=== PATIENT | female | born 1965 | race Caucasian/White ===

== ENCOUNTER 2018-04-07 10:59 | Outpatient (CLI) | payer MEDICARE ==
--- NOTE | 2018-04-07 13:08 | RAD ---
RIGHT FOOT THREE VIEWS: HISTORY: Pain. COMPARISON: None. FINDINGS: There are severe midfoot degenerative changes. Mild widening of the Lisfranc interval. Old medial h allux sesamoid fracture versus bipartite sesamoid. There are erosive changes of the intermetatarsal joints of the third and fourth metatarsal bases. Large plantar calcaneal spur. IMPRESSION: Severe midfoot degenerative changes, likely an old Lisfranc interval injury. POS: [facility]PC
--- NOTE | 2018-04-07 13:24 | RAD ---
LEFT FOOT THREE VIEWS: HISTORY: Pain. COMPARISON: None. FINDINGS: Severe degenerative changes of the navicular-medial cuneiform joint. Mild widening of the of Lisfran c interval. 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 Mild soft tissue swelling. Severe narrowing at the interphalangeal joint of the great toe. Bipartite medial hallux sesamoid versus old fracture. Moderate-sized plantar calcaneal spur. There is severe narrowing of the talonavicular joint with subcortical cyst formation and complete loss of c artilage. IMPRESSION: Severe midfoot degenerative change. POS: TPC
== END 2018-04-07 11:00 | disposition home or self-care (01) ==
LOC: RAD-FRANK 10:59
PROVIDERS: ATTEND Nurse Practitioner Family
DX: M79.671 Pain in right foot (principal); M79.672 Pain in left foot; M19.072 Primary osteoarthritis, left ankle and foot; M19.071 Primary osteoarthritis, right ankle and foot

== ENCOUNTER 2020-08-06 18:02 | Inpatient (IN) | payer MEDICARE ==
[2020-08-06] MEDS ORDERED: Fentanyl 100 MCG/2 ML VIAL ONE (18:29)
[2020-08-06] MEDS ORDERED: PROPOFOL 20 ML ONE (18:49)
[2020-08-06] MEDS ORDERED: Morphine 4 MG/ML VIAL ONE (19:54)
[2020-08-06] MEDS ORDERED: traMADol HCl 50 MG TAB PO PRN (20:50)
[2020-08-06] MEDS ORDERED: Famotidine/PF 20 mg/2ml Vial SLOW IVP SCH (21:00)
[2020-08-06] MEDS: Morphine 2 MG/ML VIAL SLOW IVP PRN ×2 (22:01→23:46)
[2020-08-06] MEDS: Nicotine 14 MG PATCH TD SCH (22:02)
[2020-08-06 22:13] VITALS: BMI 22.8
[2020-08-06 22:37] LABS: #Basophils 0.1 thou/uL (0.0-0.2); #Lymphocytes 1.5 thou/uL (1.20-3.40); #Monocytes 0.9 thou/uL (0.11-0.59); #Neutrophils 8.8 thou/uL (1.40-6.50); %Basophils 0.6 % (0.0-1.0); %Eosinophils 0.3 % (0.0-10.0); %Lymphocytes 13.2 % (21.0-51.0); %Monocytes 7.6 % (0.0-10.0); %Neutrophils 78.3 % (42.0-75.0); Hemoglobin 11.7 g/dL (12.0-16.0); Mean Corpuscular HGB CONC 35.1 g/dL (32.0-36.0); Mean Corpuscular Volume 96.8 fL (78.0-98.0); Mean Platelet Volume 6.4 fL (7.4-10.4); Platelet Count 284 thou/uL (130-400); RBC Distribution Width 12.1 % (11.5-14.5); Red Blood Cell (RBC) Count 3.43 mill/uL (4.20-5.40); White Blood Cell (WBC) Count 11.3 thou/uL (4.8-10.8)
[2020-08-06 23:00] LABS: Anion Gap 15 mmol/L (10-20); BUN (Urea Nitrogen) 4 mg/dL (9.8-20.1); Calc. Creatinine Clearance 91 mL/min (70-130); Calcium 8.5 mg/dL (7.8-10.44); Carbon Dioxide 23 mmol/L (22-29); Chloride 93 mmol/L (98-107); Glucose 78 mg/dL (70-105); Magnesium 1.6 mg/dL (1.6-2.6); Phosphorus 3.2 mg/dL (2.3-4.7); Potassium 3.3 mmol/L (3.5-5.1); Sodium 128 mmol/L (136-145)
[2020-08-06] MEDS: Cyclobenzaprine 10 MG TAB PO PRN (23:21)
[2020-08-06] MEDS: Ibuprofen 200 MG TAB PO SCH (23:45)
[2020-08-06] MEDS: Acetaminophen 325 MG TAB PO SCH (23:45)
[2020-08-07] MEDS: Morphine 2 MG/ML VIAL SLOW IVP PRN ×6 (01:46→23:52)
[2020-08-07 04:44] LABS: #Basophils 0.1 thou/uL (0.0-0.2); #Eosinphils 0.1 thou/uL (0.0-0.7); #Lymphocytes 1.7 thou/uL (1.20-3.40); #Neutrophils 5.6 thou/uL (1.40-6.50); %Basophils 0.6 % (0.0-1.0); %Eosinophils 0.6 % (0.0-10.0); %Lymphocytes 20.1 % (21.0-51.0); %Monocytes 11.9 % (0.0-10.0); %Neutrophils 66.7 % (42.0-75.0); Hemoglobin 11.6 g/dL (12.0-16.0); Mean Corpuscular HGB CONC 34.9 g/dL (32.0-36.0); Mean Corpuscular Volume 97.6 fL (78.0-98.0); Mean Platelet Volume 6.8 fL (7.4-10.4); Platelet Count 257 thou/uL (130-400); Red Blood Cell (RBC) Count 3.41 mill/uL (4.20-5.40); White Blood Cell (WBC) Count 8.4 thou/uL (4.8-10.8)
[2020-08-07 04:55] LABS: INR-International Normal Ratio 1.1; Prothrombin Time 14.1 sec (12.0-14.7)
[2020-08-07 05:04] LABS: Anion Gap 13 mmol/L (10-20); BUN (Urea Nitrogen) 5 mg/dL (9.8-20.1); Calc. Creatinine Clearance 94 mL/min (70-130); Calcium 8.7 mg/dL (7.8-10.44); Carbon Dioxide 25 mmol/L (22-29); Chloride 94 mmol/L (98-107); Glucose 79 mg/dL (70-105); Potassium 3.2 mmol/L (3.5-5.1); Sodium 129 mmol/L (136-145)
[2020-08-07] MEDS: Ibuprofen 200 MG TAB PO SCH ×3 (05:58→22:11)
[2020-08-07] MEDS: Acetaminophen 325 MG TAB PO SCH ×3 (05:58→17:09)
[2020-08-07] MEDS ORDERED: Albuterol 200 PUFF (6.7GM INHALER) INH PRN (06:52)
[2020-08-07] MEDS ORDERED: Ondansetron PF 4 MG/2 ML Vial IVP PRN ×2 (07:22→12:30)
[2020-08-07] MEDS ORDERED: CEFAZOLIN 2 GM in Premix Bag 1 BAG IVPB SCH (07:30)
[2020-08-07 07:33] LABS: SARS-CoV-2 NAA Rapid Test Not Detected (NotDetected)
[2020-08-07] MEDS ORDERED: HYDROcodone/Acetaminophen 10/325 mg Tablet PO PRN ×3 (07:40→12:30)
[2020-08-07] MEDS ORDERED: Fentanyl 100 MCG/2 ML VIAL SLOW IVP PRN (07:40)
[2020-08-07] MEDS: Polyethylene Glycol 3350 17 GM Packet PO SCH (08:08)
[2020-08-07] MEDS: Scopolamine 1.5 mg/72 hour Patch TD SCH (08:10)
[2020-08-07] MEDS ORDERED: Midazolam HCl 2 mg/2 ml Vial ONE ×2 (11:44→12:05)
[2020-08-07] MEDS ORDERED: Fentanyl 100 MCG/2 ML VIAL ONE ×2 (11:44→12:05)
[2020-08-07] MEDS ORDERED: Fentanyl 100 MCG/2 ML VIAL IV PRN (12:18)
[2020-08-07] MEDS ORDERED: Ondansetron PF 4 MG/2 ML Vial ONE (12:21)
[2020-08-07] MEDS ORDERED: Dexamethasone 20 MG/5 ML VIAL ONE (12:21)
[2020-08-07] MEDS ORDERED: Bupivacaine HCl 0.5%/Epinephrine 1:200,000/PF 30 ml Vial ONE (12:21)
[2020-08-07] MEDS ORDERED: Ropivacaine 2% HCl/PF (20 MG/10 ML VIAL) ONE (12:21)
[2020-08-07] MEDS ORDERED: Ketorolac Tromethamine 30 MG/ML VIAL ONE (12:21)
[2020-08-07] MEDS ORDERED: Lidocaine 1% PF 5 ML VIAL ONE (12:21)
[2020-08-07] MEDS ORDERED: ePHEDrine Sulfate 50 MG/10 ML VIAL ONE (12:21)
[2020-08-07] MEDS ORDERED: Ropivacaine 0.5% HCl/PF (150 MG/30 ML VIAL) ONE (12:21)
[2020-08-07] MEDS ORDERED: PROPOFOL 200 MG/20 ML VIAL ONE (12:21)
[2020-08-07] MEDS ORDERED: Promethazine HCl 25 MG/ML VIAL IM PRN ×2 (12:30→13:57)
[2020-08-07] MEDS ORDERED: traMADol HCl 50 MG TAB PO PRN ×2 (12:30)
[2020-08-07] MEDS ORDERED: Ropivacaine 0.2% 550 ML 550 ML NERVE BLCK SCH (12:30)
[2020-08-07] MEDS ORDERED: Ondansetron HCl/PF 4 MG/2 ML Vial IVP PRN (13:57)
[2020-08-07] MEDS ORDERED: Promethazine HCl 25 MG/ML VIAL IVPB PRN (13:57)
[2020-08-07] MEDS ORDERED: Meperidine HCl/PF 25 MG/ML VIAL ONE (14:14)
[2020-08-07] MEDS: CEFAZOLIN 2 GM in Premix Bag 1 BAG IVPB SCH (17:06)
[2020-08-07] MEDS: HYDROcodone/Acetaminophen 10/325 mg Tablet PO PRN ×2 (17:07→23:26)
[2020-08-07] MEDS ORDERED: Potassium Chloride 20 MEQ in Premix Bag 1 BAG IVPB SCH (18:00)
[2020-08-07] MEDS ORDERED: Magnesium Sulfate 3 GM in Sodium Chloride 0.9% 100 ML IV SCH (18:30)
[2020-08-07] MEDS: diphenhydrAMINE 25 MG CAP PO PRN (18:49)
[2020-08-07] MEDS ORDERED: Potassium Chloride 40 MEQ in Sodium Chloride 0.9% 250 ML 250 ML IVPB SCH (19:00)
[2020-08-07] MEDS: Mometasone 200 MCG/Formoterol 5 MCG 120 PUFF INHALER INH SCH (19:08)
[2020-08-07] MEDS ORDERED: Potassium Phosphate 30 MMOL in Sodium Chloride 0.9% 500 ML IVPB SCH (21:00)
[2020-08-07] MEDS: Nicotine 14 MG PATCH TD SCH (22:16)
[2020-08-08] MEDS: Acetaminophen 325 MG TAB PO SCH ×4 (00:20→18:19)
[2020-08-08] MEDS: CEFAZOLIN 2 GM in Premix Bag 1 BAG IVPB SCH (01:11)
[2020-08-08] MEDS: diphenhydrAMINE 25 MG CAP PO PRN (01:13)
[2020-08-08] MEDS: Ibuprofen 200 MG TAB PO SCH ×3 (05:21→22:22)
[2020-08-08] MEDS: Morphine 2 MG/ML VIAL SLOW IVP PRN (06:13)
[2020-08-08] MEDS: Mometasone 200 MCG/Formoterol 5 MCG 120 PUFF INHALER INH SCH ×2 (08:04→18:03)
[2020-08-08 08:32] LABS: Anion Gap 15 mmol/L (10-20); BUN (Urea Nitrogen) 8 mg/dL (9.8-20.1); Calc. Creatinine Clearance 83 mL/min (70-130); Calcium 8.7 mg/dL (7.8-10.44); Carbon Dioxide 23 mmol/L (22-29); Chloride 92 mmol/L (98-107); Glucose 70 mg/dL (70-105); Magnesium 2.5 mg/dL (1.6-2.6); Phosphorus 3.1 mg/dL (2.3-4.7); Potassium 4.1 mmol/L (3.5-5.1); Sodium 126 mmol/L (136-145)
[2020-08-08] MEDS: Polyethylene Glycol 3350 17 GM Packet PO SCH (09:02)
[2020-08-08] MEDS ORDERED: traMADol HCl 50 MG TAB PO PRN (09:17)
[2020-08-08] MEDS: Gabapentin 300 MG CAP PO SCH ×3 (09:44→20:24)
[2020-08-08] MEDS: traMADol HCl 50 MG TAB PO SCH ×3 (09:44→20:24)
[2020-08-08] MEDS: Ketorolac Tromethamine 30 MG/ML VIAL IVP PRN (15:10)
[2020-08-08] MEDS: Nicotine 14 MG PATCH TD SCH (22:22)
[2020-08-09] MEDS: Zolpidem Tartrate 5 MG TAB PO PRN ×2 (00:09→23:28)
[2020-08-09] MEDS: Acetaminophen 325 MG TAB PO SCH ×5 (00:09→23:28)
[2020-08-09] MEDS: traMADol HCl 50 MG TAB PO SCH ×4 (05:31→21:20)
[2020-08-09] MEDS: Ibuprofen 200 MG TAB PO SCH ×3 (05:32→21:19)
[2020-08-09] MEDS: Mometasone 200 MCG/Formoterol 5 MCG 120 PUFF INHALER INH SCH ×2 (08:13→19:30)
[2020-08-09] MEDS: Gabapentin 300 MG CAP PO SCH ×3 (09:19→21:18)
[2020-08-09] MEDS: Polyethylene Glycol 3350 17 GM Packet PO SCH (09:21)
[2020-08-09] MEDS: Enoxaparin Sodium 40 MG/0.4 ML SYRINGE SC SCH (09:26)
[2020-08-09] MEDS: Nicotine 14 MG PATCH TD SCH (21:17)
[2020-08-09] MEDS: Ketorolac Tromethamine 30 MG/ML VIAL IVP PRN (23:31)
[2020-08-10] MEDS: traMADol HCl 50 MG TAB PO SCH ×4 (03:55→20:30)
[2020-08-10] MEDS: Ibuprofen 200 MG TAB PO SCH ×3 (05:35→20:30)
[2020-08-10] MEDS: Acetaminophen 325 MG TAB PO SCH ×3 (05:35→19:11)
[2020-08-10] MEDS: Ketorolac Tromethamine 30 MG/ML VIAL IVP PRN (05:36)
[2020-08-10] MEDS: Scopolamine 1.5 mg/72 hour Patch TD SCH (06:48)
[2020-08-10] MEDS: Mometasone 200 MCG/Formoterol 5 MCG 120 PUFF INHALER INH SCH ×2 (07:54→19:49)
[2020-08-10] MEDS: Gabapentin 300 MG CAP PO SCH ×3 (09:03→20:29)
[2020-08-10] MEDS: Polyethylene Glycol 3350 17 GM Packet PO SCH (09:07)
[2020-08-10] MEDS: Enoxaparin Sodium 40 MG/0.4 ML SYRINGE SC SCH (09:07)
[2020-08-10] MEDS: Sodium Chloride 1 GM TAB PO SCH (20:29)
[2020-08-10] MEDS: Nicotine 14 MG PATCH TD SCH (20:29)
[2020-08-11] MEDS: Acetaminophen 325 MG TAB PO SCH ×4 (01:34→17:43)
[2020-08-11] MEDS: traMADol HCl 50 MG TAB PO SCH ×4 (01:34→20:26)
[2020-08-11] MEDS: Zolpidem Tartrate 5 MG TAB PO PRN (01:34)
[2020-08-11] MEDS: Ibuprofen 200 MG TAB PO SCH ×3 (05:35→21:28)
[2020-08-11] MEDS: Mometasone 200 MCG/Formoterol 5 MCG 120 PUFF INHALER INH SCH ×2 (06:34→19:24)
[2020-08-11] MEDS: Enoxaparin Sodium 40 MG/0.4 ML SYRINGE SC SCH (08:33)
[2020-08-11] MEDS: Gabapentin 300 MG CAP PO SCH ×3 (08:33→20:25)
[2020-08-11] MEDS: Sodium Chloride 1 GM TAB PO SCH ×2 (08:34→20:25)
[2020-08-11] MEDS: Polyethylene Glycol 3350 17 GM Packet PO SCH (08:35)
[2020-08-11] MEDS ORDERED: hydrALAZINE 20 MG/ML VIAL SLOW IVP PRN (12:08)
[2020-08-11] MEDS: Nicotine 14 MG PATCH TD SCH (21:28)
[2020-08-12] MEDS: Acetaminophen 325 MG TAB PO SCH ×4 (02:25→19:15)
[2020-08-12] MEDS: Zolpidem Tartrate 5 MG TAB PO PRN (02:30)
[2020-08-12] MEDS: traMADol HCl 50 MG TAB PO SCH ×4 (02:30→21:42)
[2020-08-12] MEDS: Ibuprofen 200 MG TAB PO SCH ×3 (06:41→21:41)
[2020-08-12] MEDS: Mometasone 200 MCG/Formoterol 5 MCG 120 PUFF INHALER INH SCH ×2 (07:24→18:49)
[2020-08-12] MEDS: Gabapentin 300 MG CAP PO SCH ×3 (09:19→21:42)
[2020-08-12] MEDS: Enoxaparin Sodium 40 MG/0.4 ML SYRINGE SC SCH (09:19)
[2020-08-12] MEDS: Sodium Chloride 1 GM TAB PO SCH ×2 (09:21→21:40)
[2020-08-12] MEDS: Polyethylene Glycol 3350 17 GM Packet PO SCH (09:22)
[2020-08-12] MEDS: Nicotine 14 MG PATCH TD SCH (21:40)
[2020-08-13] MEDS: Acetaminophen 325 MG TAB PO SCH ×5 (02:17→23:42)
[2020-08-13] MEDS: Zolpidem Tartrate 5 MG TAB PO PRN ×2 (02:18→21:23)
[2020-08-13] MEDS: traMADol HCl 50 MG TAB PO SCH ×4 (02:18→21:23)
[2020-08-13] MEDS: Ibuprofen 200 MG TAB PO SCH ×3 (05:56→21:21)
[2020-08-13] MEDS: Mometasone 200 MCG/Formoterol 5 MCG 120 PUFF INHALER INH SCH ×2 (07:30→18:37)
[2020-08-13] MEDS: Sodium Chloride 1 GM TAB PO SCH ×2 (09:39→21:22)
[2020-08-13] MEDS: Gabapentin 300 MG CAP PO SCH ×3 (09:39→21:23)
[2020-08-13] MEDS: Enoxaparin Sodium 40 MG/0.4 ML SYRINGE SC SCH (09:39)
[2020-08-13] MEDS: Polyethylene Glycol 3350 17 GM Packet PO SCH (09:40)
[2020-08-13] MEDS: Nicotine 14 MG PATCH TD SCH (23:08)
[2020-08-14] MEDS: traMADol HCl 50 MG TAB PO SCH ×4 (03:09→21:40)
[2020-08-14] MEDS: Ibuprofen 200 MG TAB PO SCH ×3 (06:16→21:39)
[2020-08-14] MEDS: Acetaminophen 325 MG TAB PO SCH ×3 (06:17→18:39)
[2020-08-14] MEDS: Mometasone 200 MCG/Formoterol 5 MCG 120 PUFF INHALER INH SCH ×2 (08:04→19:08)
[2020-08-14] MEDS: Gabapentin 300 MG CAP PO SCH ×3 (11:14→21:39)
[2020-08-14] MEDS: Enoxaparin Sodium 40 MG/0.4 ML SYRINGE SC SCH (11:15)
[2020-08-14] MEDS: Sodium Chloride 1 GM TAB PO SCH ×2 (11:15→21:40)
[2020-08-14] MEDS: Polyethylene Glycol 3350 17 GM Packet PO SCH (11:16)
[2020-08-14] MEDS: Nicotine 14 MG PATCH TD SCH (21:39)
[2020-08-14] MEDS: Zolpidem Tartrate 5 MG TAB PO PRN (21:40)
[2020-08-15] MEDS: Acetaminophen 325 MG TAB PO SCH ×4 (00:50→18:44)
[2020-08-15] MEDS: traMADol HCl 50 MG TAB PO SCH ×4 (02:52→20:28)
[2020-08-15] MEDS: Ibuprofen 200 MG TAB PO SCH ×3 (05:22→20:28)
[2020-08-15] MEDS: Mometasone 200 MCG/Formoterol 5 MCG 120 PUFF INHALER INH SCH ×2 (08:26→19:20)
[2020-08-15] MEDS: Sodium Chloride 1 GM TAB PO SCH ×2 (08:46→20:28)
[2020-08-15] MEDS: Gabapentin 300 MG CAP PO SCH ×3 (08:46→20:28)
[2020-08-15] MEDS: Polyethylene Glycol 3350 17 GM Packet PO SCH (08:46)
[2020-08-15] MEDS: Enoxaparin Sodium 40 MG/0.4 ML SYRINGE SC SCH (08:46)
[2020-08-15] MEDS: Nicotine 14 MG PATCH TD SCH (20:27)
[2020-08-15] MEDS: Zolpidem Tartrate 5 MG TAB PO PRN (20:30)
[2020-08-16] MEDS: Acetaminophen 325 MG TAB PO SCH ×5 (01:12→23:53)
[2020-08-16] MEDS: traMADol HCl 50 MG TAB PO SCH ×4 (03:47→20:02)
[2020-08-16] MEDS: Ibuprofen 200 MG TAB PO SCH ×2 (04:53→14:02)
[2020-08-16] MEDS: Mometasone 200 MCG/Formoterol 5 MCG 120 PUFF INHALER INH SCH ×2 (08:09→19:11)
[2020-08-16] MEDS: Polyethylene Glycol 3350 17 GM Packet PO SCH (09:09)
[2020-08-16] MEDS: Sodium Chloride 1 GM TAB PO SCH ×2 (09:12→20:02)
[2020-08-16] MEDS: Gabapentin 300 MG CAP PO SCH ×3 (09:12→20:02)
[2020-08-16] MEDS: Enoxaparin Sodium 40 MG/0.4 ML SYRINGE SC SCH (09:12)
[2020-08-16] MEDS ORDERED: Ibuprofen 200 MG TAB PO PRN (16:49)
[2020-08-16] MEDS: Nicotine 14 MG PATCH TD SCH (20:01)
[2020-08-16] MEDS: Zolpidem Tartrate 5 MG TAB PO PRN (20:05)
[2020-08-16] MEDS ORDERED: Amlodipine 5 MG TAB PO SCH (21:00)
[2020-08-17] MEDS: traMADol HCl 50 MG TAB PO SCH ×4 (00:58→20:51)
[2020-08-17] MEDS: Acetaminophen 325 MG TAB PO SCH ×4 (00:58→17:37)
[2020-08-17] MEDS: Mometasone 200 MCG/Formoterol 5 MCG 120 PUFF INHALER INH SCH ×2 (07:55→19:21)
[2020-08-17] MEDS: Gabapentin 300 MG CAP PO SCH ×3 (08:59→20:50)
[2020-08-17] MEDS: Sodium Chloride 1 GM TAB PO SCH ×2 (09:00→20:50)
[2020-08-17] MEDS: Polyethylene Glycol 3350 17 GM Packet PO SCH (09:00)
[2020-08-17] MEDS: Enoxaparin Sodium 40 MG/0.4 ML SYRINGE SC SCH (09:01)
[2020-08-17] MEDS ORDERED: Amlodipine 5 MG TAB PO SCH (09:08)
[2020-08-17] MEDS: Zolpidem Tartrate 5 MG TAB PO PRN (20:50)
[2020-08-17] MEDS: Amlodipine 5 MG TAB PO SCH (20:50)
[2020-08-17] MEDS: Nicotine 14 MG PATCH TD SCH (20:51)
[2020-08-18] MEDS: Acetaminophen 325 MG TAB PO SCH ×4 (00:54→17:28)
[2020-08-18] MEDS: traMADol HCl 50 MG TAB PO SCH ×4 (02:44→22:30)
[2020-08-18 05:03] LABS: #Eosinphils 0.1 thou/uL (0.0-0.7); #Lymphocytes 1.5 thou/uL (1.20-3.40); #Monocytes 0.7 thou/uL (0.11-0.59); #Neutrophils 3.5 thou/uL (1.40-6.50); %Basophils 0.8 % (0.0-1.0); %Eosinophils 1.3 % (0.0-10.0); %Lymphocytes 25.2 % (21.0-51.0); %Monocytes 12.5 % (0.0-10.0); %Neutrophils 60.2 % (42.0-75.0); Mean Corpuscular HGB CONC 33.7 g/dL (32.0-36.0); Mean Corpuscular Hemoglobin 34.2 pg (27.0-31.0); Mean Platelet Volume 7.2 fL (7.4-10.4); Platelet Count 480 thou/uL (130-400); RBC Distribution Width 12.5 % (11.5-14.5); White Blood Cell (WBC) Count 5.8 thou/uL (4.8-10.8)
[2020-08-18 05:23] LABS: Anion Gap 19 mmol/L (10-20); BUN (Urea Nitrogen) 11 mg/dL (9.8-20.1); Calc. Creatinine Clearance 76 mL/min (70-130); Calcium 9.5 mg/dL (7.8-10.44); Carbon Dioxide 19 mmol/L (22-29); Chloride 100 mmol/L (98-107); Glucose 105 mg/dL (70-105); Magnesium 1.5 mg/dL (1.6-2.6); Phosphorus 4.4 mg/dL (2.3-4.7); Potassium 4.5 mmol/L (3.5-5.1); Sodium 133 mmol/L (136-145)
[2020-08-18] MEDS: Mometasone 200 MCG/Formoterol 5 MCG 120 PUFF INHALER INH SCH ×2 (07:44→19:52)
[2020-08-18] MEDS ORDERED: Magnesium Sulfate 3 GM in Sodium Chloride 0.9% 100 ML IV SCH (07:45)
[2020-08-18] MEDS: Gabapentin 300 MG CAP PO SCH ×3 (08:37→20:09)
[2020-08-18] MEDS: Amlodipine 5 MG TAB PO SCH ×2 (08:37→20:09)
[2020-08-18] MEDS: Sodium Chloride 1 GM TAB PO SCH ×2 (08:37→20:09)
[2020-08-18] MEDS: Losartan 25 MG TAB PO SCH (08:38)
[2020-08-18] MEDS: Polyethylene Glycol 3350 17 GM Packet PO SCH (08:38)
[2020-08-18] MEDS: Enoxaparin Sodium 40 MG/0.4 ML SYRINGE SC SCH (08:38)
[2020-08-18] MEDS: Nicotine 14 MG PATCH TD SCH (20:09)
[2020-08-18] MEDS: Zolpidem Tartrate 5 MG TAB PO PRN (20:09)
[2020-08-18] MEDS: Cyclobenzaprine 10 MG TAB PO PRN (20:10)
[2020-08-19] MEDS: Acetaminophen 325 MG TAB PO SCH ×3 (00:13→10:25)
[2020-08-19] MEDS: traMADol HCl 50 MG TAB PO SCH ×2 (04:15→10:24)
[2020-08-19] MEDS: Mometasone 200 MCG/Formoterol 5 MCG 120 PUFF INHALER INH SCH (07:38)
[2020-08-19 09:22] VITALS: BP 152/74; TEMP 98.3
[2020-08-19] MEDS: Gabapentin 300 MG CAP PO SCH (09:24)
[2020-08-19] MEDS: Sodium Chloride 1 GM TAB PO SCH (09:24)
[2020-08-19] MEDS: Enoxaparin Sodium 40 MG/0.4 ML SYRINGE SC SCH (09:25)
[2020-08-19] MEDS: Amlodipine 5 MG TAB PO SCH (09:25)
[2020-08-19] MEDS: Polyethylene Glycol 3350 17 GM Packet PO SCH (09:25)
[2020-08-19] MEDS: Losartan 25 MG TAB PO SCH (10:23)
== END 2020-08-19 10:35 | disposition home health service (06) | DRG 493 ==
LOC: ERS 18:02 → OBSVTOIN 20:52 → INTOOBSV 20:52 → ONC 20:52
PROVIDERS: ADMIT Surgery; ATTEND Surgery
PROC: 0SSGXZZ Reposition Left Ankle Joint, External Approach (ICD-10-PCS; 2020-08-06)
PROC: 0QSK04Z Reposition Left Fibula with Internal Fixation Device, Open Approach (ICD-10-PCS; principal; 2020-08-07)
PROC: 0QSH04Z Reposition Left Tibia with Internal Fixation Device, Open Approach (ICD-10-PCS; 2020-08-07)
PROC: 3E0T3BZ Introduction of Anesthetic Agent into Peripheral Nerves and Plexi, Percutaneous Approach (ICD-10-PCS; 2020-08-07)
DX: S82.852A Displaced trimalleolar fracture of left lower leg, initial encounter for closed fracture (principal); E87.1 Hypo-osmolality and hyponatremia; Z20.822 Contact with and (suspected) exposure to COVID-19; J44.9 Chronic obstructive pulmonary disease, unspecified; I10 Essential (primary) hypertension; F17.210 Nicotine dependence, cigarettes, uncomplicated; E87.6 Hypokalemia; W17.89XA Other fall from one level to another, initial encounter; Y92.007 Garden or yard of unspecified non-institutional (private) residence as the place of occurrence of the external cause; Z90.2 Acquired absence of lung [part of]; Z79.899 Other long term (current) drug therapy; Z79.51 Long term (current) use of inhaled steroids
CPT/HCPCS: 27818; 36415; 76000; 80048; 83735; 84100; 85025; 85610; 85730; 94640; 94664; 96374; 96375; 99152; 99153; A4306; C1713; C1769; G0390; J0690; J1100; J1650; J1885; J2175; J2250; J2270; J2405; J2704; J2795; J3010; J3475; J3480; J3490; J7050; J7620; Q0163; U0002; U0003; U0005

== ENCOUNTER 2022-06-13 07:50 | Day surgery (SDC) | payer MEDICARE ==
[2022-06-12 13:44] VITALS: BMI 22.0
[~2022-06-13 07:50] MED LIST: Fluorouracil 100 MG, Enoxaparin 25 MG, EPINEPHrine 0.3 MG in Ophthalmic Irrigation Solu... IRR SCH; Midazolam HCl 2 mg/2 ml Vial ONE; fentaNYL 50 mcg/mL 1 mL Vial ONE
[2022-06-13] MEDS ORDERED: Phenylephrine 2.5% Ophth Soln 5 ML BOT ONE (08:22)
[2022-06-13] MEDS ORDERED: Cyclopentolate 1% Opth Drop 2 ML BOT ONE (08:22)
[2022-06-13] MEDS ORDERED: Famotidine/PF 20 mg/2ml Vial ONE (09:38)
[2022-06-13] MEDS ORDERED: ePHEDrine Sulfate 50 MG/10 ML VIAL ONE (09:46)
[2022-06-13] MEDS ORDERED: Triamcinolone 40 MG/ML VIAL ONE (09:46)
[2022-06-13] MEDS ORDERED: Lidocaine 1% PF 5 ML VIAL ONE ×2 (09:46)
[2022-06-13] MEDS ORDERED: PROPOFOL 200 MG/20 ML VIAL ONE (09:46)
[2022-06-13] MEDS ORDERED: CEFAZOLIN 1 GM VIAL ONE (09:46)
[2022-06-13] MEDS ORDERED: Maxitrol 0.1% Opth Oint 3.5 GM TUBE ONE (09:46)
[2022-06-13] MEDS ORDERED: Bupivacaine 0.75% 10 ML VIAL ONE (09:46)
[2022-06-13] MEDS ORDERED: Ondansetron PF 4 MG/2 ML Vial ONE (09:46)
[2022-06-13] MEDS ORDERED: Lidocaine 4% PF 5 ML AMP ONE (09:46)
[2022-06-13] MEDS ORDERED: PHENYLEPHRINE-NS 100 MCG/ML 10 ML SYRINGE ONE (09:46)
== END 2022-06-13 13:06 | disposition home or self-care (01) ==
LOC: SDC 07:50
PROVIDERS: ATTEND Ophthalmology Retina Specialist
PROC: 08QE3ZZ Repair Right Retina, Percutaneous Approach (ICD-10-PCS; principal; 2022-06-13)
PROC: 08T43ZZ Resection of Right Vitreous, Percutaneous Approach (ICD-10-PCS; 2022-06-13)
DX: H33.011 Retinal detachment with single break, right eye (principal); Z79.899 Other long term (current) drug therapy
CPT/HCPCS: 67025; 67108; J3010; J0171; J0690; J1650; J2250; J2405; J2704; J3301; J3490; J9190; S0028

== ENCOUNTER 2022-10-31 22:12 | Inpatient (IN) | payer MEDICARE ==
[2022-11-01 00:35] LABS: #Eosinphils 0.1 thou/uL (0.0-0.7); #Monocytes 0.5 thou/uL (0.11-0.59); #Neutrophils 3.5 thou/uL (1.40-6.50); %Basophils 0.3 % (0.0-1.0); %Eosinophils 2.1 % (0.0-10.0); %Monocytes 8.8 % (0.0-10.0); %Neutrophils 59.6 % (42.0-75.0); Hematocrit 24.7 % (36.0-47.0); Hemoglobin 9.8 g/dL (12.0-16.0); Mean Corpuscular HGB CONC 39.7 g/dL (32.0-36.0); Mean Corpuscular Volume 88.2 fl (78.0-98.0); Mean Platelet Volume 10.4 fL (7.4-10.4); Platelet Count 220 10x3/uL (130-400); RBC Distribution Width 12.1 % (11.5-14.5); White Blood Cell (WBC) Count 5.8 10x3/uL (4.8-10.8)
[2022-11-01] MEDS ORDERED: Thiamine HCl 200 MG/2 ML VIAL SLOW IVP SCH (00:45)
[2022-11-01] MEDS: Thiamine HCl 200 MG/2 ML VIAL SLOW IVP SCH (00:58)
[2022-11-01 01:00] LABS: Acetaminophen Less than 10 mcg/mL (10.0-30.0); Alcohol 129.2 mg/dL (Less than 10)
[2022-11-01 01:10] LABS: ALT (SGPT) 15 U/L (8-55); AST (SGOT) 22 U/L (5-34); Albumin 3.8 g/dL (3.5-5.0); Alkaline Phosphatase 87 U/L (40-110); BUN (Urea Nitrogen) Less than 4 mg/dL (9.8-20.1); Bilirubin, Total 1.2 mg/dL (0.2-1.2); Calc. Creatinine Clearance 0 mL/min (70-130); Calcium 8.7 mg/dL (7.8-10.44); Chloride 68 mmol/L (98-107); Estimated GFR 98; Globulin 2.7 g/dL (2.4-3.5); Glucose 80 mg/dL (70-105); Magnesium 1.3 mg/dL (1.6-2.6); Protein, Total 6.5 g/dL (6.0-8.3)
[2022-11-01 01:27] LABS: Salicylate Less than 8.0 mg/dL (15.0-30.0)
[2022-11-01 01:30] LABS: Potassium 2.5 mmol/L (3.5-5.1); Sodium 108 mmol/L (136-145)
[2022-11-01] MEDS ORDERED: Potassium Chloride 20 MEQ TAB ONE ×2 (02:07→08:22)
[2022-11-01] MEDS ORDERED: Magnesium 2 GM/50 ML BAG (IN WATER) ONE (02:07)
[2022-11-01 02:14] LABS: Carbon Dioxide 25 mmol/L (22-29)
[2022-11-01] MEDS ORDERED: Lorazepam 1 MG TAB PO PRN (03:22)
[2022-11-01] MEDS ORDERED: Lorazepam 2 MG/ML VIAL IM PRN (03:22)
[2022-11-01] MEDS ORDERED: Ondansetron PF 4 MG/2 ML Vial IVP PRN (03:30)
[2022-11-01] MEDS ORDERED: Acetaminophen 325 MG TAB PO PRN (03:30)
[2022-11-01] MEDS ORDERED: Electrolyte Replacement Protocol 1 EACH FS SCH (03:30)
[2022-11-01] MEDS ORDERED: Ondansetron ODT 4 MG TAB SL PRN (03:30)
[2022-11-01] MEDS: Sodium Chloride 3% 500 ML IVPB SCH ×2 (03:30→03:31)
[2022-11-01 05:09] LABS: Amphetamine Not Detected (NotDetected); Barbiturates Screen Not Detected (NotDetected); Benzodiazepine Screen Not Detected (NotDetected); Cocaine Metabolite Screen Not Detected (NotDetected); Methadone Not Detected (NotDetected); Methamphetamine Not Detected (NotDetected); Opiate Screen Not Detected (NotDetected); Oxycodone Screen Not Detected (NotDetected); Phencyclidine (PCP) Not Detected (NotDetected); THC/Cannabinoid Screen Not Detected (NotDetected); Tricyclic Screen Not Detected (NotDetected)
[2022-11-01 06:10] LABS: #Monocytes 0.4 thou/uL (0.11-0.59); #Neutrophils 2.1 thou/uL (1.40-6.50); %Basophils 0.2 % (0.0-1.0); %Eosinophils 0.5 % (0.0-10.0); %Lymphocytes 38.2 % (21.0-51.0); %Monocytes 10.2 % (0.0-10.0); %Neutrophils 50.7 % (42.0-75.0); Hematocrit 22.1 % (36.0-47.0); Hemoglobin 8.6 g/dL (12.0-16.0); Mean Corpuscular HGB CONC 38.9 g/dL (32.0-36.0); Mean Corpuscular Volume 89.8 fl (78.0-98.0); Mean Platelet Volume 9.8 fL (7.4-10.4); Platelet Count 203 10x3/uL (130-400); RBC Distribution Width 12.2 % (11.5-14.5); Red Blood Cell (RBC) Count 2.46 mill/uL (4.20-5.40); White Blood Cell (WBC) Count 4.2 10x3/uL (4.8-10.8)
[2022-11-01 06:42] LABS: Phosphorus 2.7 mg/dL (2.3-4.7)
[2022-11-01 06:46] LABS: ALT (SGPT) 15 U/L (8-55); AST (SGOT) 20 U/L (5-34); Albumin 3.2 g/dL (3.5-5.0); Alkaline Phosphatase 74 U/L (40-110); Anion Gap 17 mmol/L (10-20); BUN (Urea Nitrogen) Less than 4 mg/dL (9.8-20.1); Bilirubin, Total 0.9 mg/dL (0.2-1.2); Calc. Creatinine Clearance 0 mL/min (70-130); Calcium 8.1 mg/dL (7.8-10.44); Carbon Dioxide 22 mmol/L (22-29); Chloride 78 mmol/L (98-107); Estimated GFR 102; Globulin 2.3 g/dL (2.4-3.5); Glucose 73 mg/dL (70-105); Magnesium 2.3 mg/dL (1.6-2.6); Potassium 3.2 mmol/L (3.5-5.1); Protein, Total 5.5 g/dL (6.0-8.3)
[2022-11-01 07:00] LABS: Sodium 114 mmol/L (136-145)
[2022-11-01] MEDS ORDERED: Potassium Chloride 20 MEQ TAB PO SCH (08:00)
[2022-11-01] MEDS: Ipratropium/Albuterol 3 ML NEB IPPB SCH ×3 (08:21→18:43)
[2022-11-01] MEDS ORDERED: Folic Acid 1 MG TAB ONE (08:22)
[2022-11-01] MEDS ORDERED: Famotidine 20 MG TAB ONE (08:22)
[2022-11-01] MEDS ORDERED: Ipratropium/Albuterol 3 ML NEB ONE (08:26)
[2022-11-01] MEDS: Multivit, Therapeutic 1 TAB PO SCH (08:30)
[2022-11-01] MEDS: Famotidine 20 MG TAB PO SCH ×2 (08:30→20:33)
[2022-11-01] MEDS: Folic Acid 1 MG TAB PO SCH (08:30)
[2022-11-01 09:10] LABS: Anion Gap 15 mmol/L (10-20); BUN (Urea Nitrogen) Less than 4 mg/dL (9.8-20.1); Calc. Creatinine Clearance 94 mL/min (70-130); Calcium 8.3 mg/dL (7.8-10.44); Carbon Dioxide 26 mmol/L (22-29); Chloride 79 mmol/L (98-107); Estimated GFR 101; Glucose 83 mg/dL (70-105); Potassium 3.6 mmol/L (3.5-5.1)
[2022-11-01 09:13] LABS: Sodium 116 mmol/L (136-145)
[2022-11-01] MEDS ORDERED: Sodium Chloride 3% 500 ML IVPB SCH (11:01)
[2022-11-01 12:08] LABS: BUN (Urea Nitrogen) Less than 4 mg/dL (9.8-20.1); Calc. Creatinine Clearance 88 mL/min (70-130); Calcium 8.6 mg/dL (7.8-10.44); Carbon Dioxide 25 mmol/L (22-29); Chloride 81 mmol/L (98-107); Estimated GFR 97; Glucose 81 mg/dL (70-105); Potassium 4.2 mmol/L (3.5-5.1)
[2022-11-01 12:10] LABS: Anion Gap 19 mmol/L (10-20)
[2022-11-01 12:15] LABS: Sodium 117 mmol/L (136-145)
[2022-11-01 13:25] LABS: Anion Gap 13 mmol/L (10-20); BUN (Urea Nitrogen) 4 mg/dL (9.8-20.1); Calc. Creatinine Clearance 87 mL/min (70-130); Calcium 8.5 mg/dL (7.8-10.44); Carbon Dioxide 25 mmol/L (22-29); Chloride 85 mmol/L (98-107); Estimated GFR 95; Glucose 130 mg/dL (70-105); Potassium 4.3 mmol/L (3.5-5.1)
[2022-11-01 13:33] LABS: Sodium 119 mmol/L (136-145)
[2022-11-01] MEDS ORDERED: Iopamidol-370 76% 500 ML MDV (1 ML CHARGE) ONE (15:24)
[2022-11-01 15:58] LABS: Anion Gap 12 mmol/L (10-20); BUN (Urea Nitrogen) 7 mg/dL (9.8-20.1); Calc. Creatinine Clearance 90 mL/min (70-130); Calcium 8.1 mg/dL (7.8-10.44); Carbon Dioxide 26 mmol/L (22-29); Chloride 87 mmol/L (98-107); Estimated GFR 98; Glucose 100 mg/dL (70-105); Potassium 4.8 mmol/L (3.5-5.1); Sodium 120 mmol/L (136-145)
[2022-11-01 17:36] VITALS: BMI 19.0
[2022-11-01 20:49] LABS: Anion Gap 15 mmol/L (10-20); BUN (Urea Nitrogen) 8 mg/dL (9.8-20.1); Calc. Creatinine Clearance 67 mL/min (70-130); Calcium 8.4 mg/dL (7.8-10.44); Carbon Dioxide 23 mmol/L (22-29); Chloride 88 mmol/L (98-107); Estimated GFR 87; Glucose 123 mg/dL (70-105); Potassium 4.3 mmol/L (3.5-5.1); Sodium 122 mmol/L (136-145)
[2022-11-01] MEDS: Dextrose 5% in Water 1,000 ML IV SCH (21:59)
[2022-11-02 00:35] LABS: Anion Gap 7 mmol/L (10-20); BUN (Urea Nitrogen) 9 mg/dL (9.8-20.1); Calc. Creatinine Clearance 79 mL/min (70-130); Calcium 8.5 mg/dL (7.8-10.44); Carbon Dioxide 30 mmol/L (22-29); Chloride 89 mmol/L (98-107); Estimated GFR 101; Glucose 101 mg/dL (70-105); Potassium 4.2 mmol/L (3.5-5.1); Sodium 122 mmol/L (136-145)
[2022-11-02] MEDS: Ipratropium/Albuterol 3 ML NEB IPPB SCH ×5 (01:32→23:41)
[2022-11-02] MEDS: Thiamine HCl 200 MG/2 ML VIAL SLOW IVP SCH (02:35)
[2022-11-02] MEDS ORDERED: Lorazepam 1 MG TAB PO PRN (03:22)
[2022-11-02 04:17] LABS: #Monocytes 0.6 thou/uL (0.11-0.59); #Neutrophils 2.4 thou/uL (1.40-6.50); %Basophils 0.5 % (0.0-1.0); %Eosinophils 0.7 % (0.0-10.0); %Lymphocytes 27.8 % (21.0-51.0); %Monocytes 13.9 % (0.0-10.0); %Neutrophils 56.9 % (42.0-75.0); Hematocrit 20.7 % (36.0-47.0); Hemoglobin 7.7 g/dL (12.0-16.0); Mean Corpuscular HGB CONC 37.2 g/dL (32.0-36.0); Mean Corpuscular Hemoglobin 34.8 pg (27.0-31.0); Mean Platelet Volume 10.3 fL (7.4-10.4); Platelet Count 176 10x3/uL (130-400); Red Blood Cell (RBC) Count 2.21 mill/uL (4.20-5.40); White Blood Cell (WBC) Count 4.2 10x3/uL (4.8-10.8)
[2022-11-02 04:32] LABS: Mean Corpuscular Volume 93.7 fl (78.0-98.0)
[2022-11-02 04:44] LABS: Anion Gap 9 mmol/L (10-20); BUN (Urea Nitrogen) 8 mg/dL (9.8-20.1); Calc. Creatinine Clearance 83 mL/min (70-130); Calcium 8.4 mg/dL (7.8-10.44); Carbon Dioxide 29 mmol/L (22-29); Chloride 89 mmol/L (98-107); Estimated GFR 102; Glucose 91 mg/dL (70-105); Magnesium 1.8 mg/dL (1.6-2.6); Potassium 3.9 mmol/L (3.5-5.1); Sodium 123 mmol/L (136-145)
[2022-11-02 07:52] LABS: Anion Gap 8 mmol/L (10-20); BUN (Urea Nitrogen) 6 mg/dL (9.8-20.1); Calc. Creatinine Clearance 86 mL/min (70-130); Calcium 8.5 mg/dL (7.8-10.44); Carbon Dioxide 29 mmol/L (22-29); Chloride 90 mmol/L (98-107); Estimated GFR 102; Glucose 88 mg/dL (70-105); Potassium 3.8 mmol/L (3.5-5.1); Sodium 123 mmol/L (136-145)
[2022-11-02] MEDS ORDERED: Magnesium 2 GM/50 ML(in water) 2 GM in Premix Bag 1 BAG IVPB SCH (09:00)
[2022-11-02] MEDS: Folic Acid 1 MG TAB PO SCH (09:40)
[2022-11-02] MEDS: Multivit, Therapeutic 1 TAB PO SCH (09:40)
[2022-11-02] MEDS: Famotidine 20 MG TAB PO SCH ×2 (09:40→19:31)
[2022-11-02] MEDS: Dextrose 5% in Water 1,000 ML IV SCH (09:41)
[2022-11-02] MEDS: Sodium Chloride 0.9% 1,000 ML IV SCH (16:14)
[2022-11-03] MEDS ORDERED: Lorazepam 1 MG TAB PO PRN (03:22)
[2022-11-03] MEDS: Thiamine HCl 200 MG/2 ML VIAL SLOW IVP SCH (03:26)
[2022-11-03] MEDS: Ipratropium/Albuterol 3 ML NEB IPPB SCH ×4 (06:39→23:39)
[2022-11-03] MEDS: Folic Acid 1 MG TAB PO SCH (07:50)
[2022-11-03] MEDS: Famotidine 20 MG TAB PO SCH ×2 (07:50→19:58)
[2022-11-03] MEDS: Multivit, Therapeutic 1 TAB PO SCH (07:50)
[2022-11-03] MEDS: Sodium Chloride 0.9% 1,000 ML IV SCH (07:53)
[2022-11-03 11:46] LABS: #Monocytes 0.4 thou/uL (0.11-0.59); #Neutrophils 2.6 thou/uL (1.40-6.50); %Basophils 0.5 % (0.0-1.0); %Lymphocytes 20.5 % (21.0-51.0); %Monocytes 10.9 % (0.0-10.0); %Neutrophils 66.8 % (42.0-75.0); Hematocrit 20.4 % (36.0-47.0); Hemoglobin 7.3 g/dL (12.0-16.0); Mean Corpuscular HGB CONC 35.8 g/dL (32.0-36.0); Mean Corpuscular Hemoglobin 35.1 pg (27.0-31.0); Mean Corpuscular Volume 98.1 fl (78.0-98.0); Mean Platelet Volume 10.4 fL (7.4-10.4); Platelet Count 171 10x3/uL (130-400); RBC Distribution Width 13.6 % (11.5-14.5); Red Blood Cell (RBC) Count 2.08 mill/uL (4.20-5.40); White Blood Cell (WBC) Count 3.9 10x3/uL (4.8-10.8)
[2022-11-03 12:08] LABS: Anion Gap 10 mmol/L (10-20); BUN (Urea Nitrogen) 5 mg/dL (9.8-20.1); Calc. Creatinine Clearance 89 mL/min (70-130); Calcium 8.4 mg/dL (7.8-10.44); Carbon Dioxide 27 mmol/L (22-29); Chloride 93 mmol/L (98-107); Estimated GFR 102; Glucose 95 mg/dL (70-105); Magnesium 1.7 mg/dL (1.6-2.6); Potassium 4.3 mmol/L (3.5-5.1); Sodium 126 mmol/L (136-145)
[2022-11-03] MEDS ORDERED: Magnesium 2 GM/50 ML(in water) 2 GM in Premix Bag 1 BAG IVPB SCH (14:15)
[2022-11-04] MEDS ORDERED: Lorazepam 0.5 MG TAB PO PRN (03:22)
[2022-11-04] MEDS: Sodium Chloride 0.9% 1,000 ML IV SCH (05:10)
[2022-11-04] MEDS: Ipratropium/Albuterol 3 ML NEB IPPB SCH ×2 (07:18→13:08)
[2022-11-04 07:25] LABS: Anion Gap 10 mmol/L (10-20); BUN (Urea Nitrogen) 6 mg/dL (9.8-20.1); Calc. Creatinine Clearance 93 mL/min (70-130); Calcium 8.5 mg/dL (7.8-10.44); Carbon Dioxide 25 mmol/L (22-29); Chloride 99 mmol/L (98-107); Estimated GFR 102; Glucose 81 mg/dL (70-105); Sodium 130 mmol/L (136-145)
[2022-11-04 07:49] VITALS: BP 132/87; TEMP 97.8
[2022-11-04] MEDS ORDERED: Magnesium 2 GM/50 ML(in water) 2 GM in Premix Bag 1 BAG IVPB SCH (08:00)
[2022-11-04] MEDS: Multivit, Therapeutic 1 TAB PO SCH (08:33)
[2022-11-04] MEDS: Famotidine 20 MG TAB PO SCH (08:33)
[2022-11-04] MEDS: Folic Acid 1 MG TAB PO SCH (08:33)
[2022-11-04] MEDS ORDERED: Thiamine 100 MG TAB PO SCH (09:00)
== END 2022-11-04 14:12 | disposition home health service (06) | DRG 641 ==
LOC: ERS 22:12 → ERHOLD 11-01 02:41 → CCU 11-01 03:45 → IMCU/EMU 11-02 06:59 → T4-A 11-02 15:38
PROVIDERS: ADMIT Internal Medicine; ATTEND Internal Medicine
PROC: 0T9B70Z Drainage of Bladder with Drainage Device, Via Natural or Artificial Opening (ICD-10-PCS; principal; 2022-11-01)
PROC: 05H533Z Insertion of Infusion Device into Right Subclavian Vein, Percutaneous Approach (ICD-10-PCS; 2022-11-01)
DX: E87.1 Hypo-osmolality and hyponatremia (principal); N39.0 Urinary tract infection, site not specified; E87.6 Hypokalemia; E83.42 Hypomagnesemia; I10 Essential (primary) hypertension; J44.9 Chronic obstructive pulmonary disease, unspecified; F17.210 Nicotine dependence, cigarettes, uncomplicated; Z79.899 Other long term (current) drug therapy; F10.20 Alcohol dependence, uncomplicated; D64.9 Anemia, unspecified; R53.1 Weakness; R42 Dizziness and giddiness
CPT/HCPCS: 36415; 36416; 36556; 51701; 70450; 71045; 71260; 72125; 80048; 80053; 80306; 80307; 81001; 83690; 83735; 83880; 84100; 84484; 85025; 93005; 94640; 96365; 96366; 96368; J0696; J1650; J3411; J3475; J3480; J7030; J7050; J7070; J7131; J7620; Q9967

== ENCOUNTER 2022-11-04 14:49 | Emergency (ER) | payer MEDICARE ==
[2022-11-04 17:12] LABS: #Eosinphils 0.1 thou/uL (0.0-0.7); #Monocytes 0.8 thou/uL (0.11-0.59); #Neutrophils 2.3 thou/uL (1.40-6.50); %Basophils 0.9 % (0.0-1.0); %Eosinophils 1.7 % (0.0-10.0); %Lymphocytes 26.4 % (21.0-51.0); %Monocytes 17.7 % (0.0-10.0); %Neutrophils 53.1 % (42.0-75.0); Hematocrit 23.2 % (36.0-47.0); Hemoglobin 7.9 g/dL (12.0-16.0); Mean Corpuscular HGB CONC 34.1 g/dL (32.0-36.0); Mean Corpuscular Volume 102.7 fl (78.0-98.0); Mean Platelet Volume 9.9 fL (7.4-10.4); Platelet Count 164 10x3/uL (130-400); RBC Distribution Width 14.5 % (11.5-14.5); Red Blood Cell (RBC) Count 2.26 mill/uL (4.20-5.40); White Blood Cell (WBC) Count 4.2 10x3/uL (4.8-10.8)
[2022-11-04 17:33] LABS: Troponin I Less than 0.010 ng/mL (< 0.028)
[2022-11-04 17:38] LABS: ALT (SGPT) 11 U/L (8-55); AST (SGOT) 16 U/L (5-34); Albumin 3.2 g/dL (3.5-5.0); Alkaline Phosphatase 65 U/L (40-110); Anion Gap 10 mmol/L (10-20); BUN (Urea Nitrogen) 7 mg/dL (9.8-20.1); Bilirubin, Total 0.5 mg/dL (0.2-1.2); Calc. Creatinine Clearance 0 mL/min (70-130); Calcium 8.6 mg/dL (7.8-10.44); Carbon Dioxide 25 mmol/L (22-29); Chloride 95 mmol/L (98-107); Estimated GFR 97; Globulin 2.1 g/dL (2.4-3.5); Glucose 92 mg/dL (70-105); Lipase 99 U/L (8-78); Protein, Total 5.3 g/dL (6.0-8.3); Sodium 125 mmol/L (136-145)
[2022-11-04 19:24] LABS: Bacteria/HPF 4+ HPF (None Seen); Bilirubin Negative (Negative); Blood, Urine Negative (Negative); CAUTI Indications for Culture Alt mental st,lethar; Clarity Turbid (Clear); Glucose, Urine (Dipstick) Normal (Negative); Ketone, Urine Negative (Negative); Leukocyte 250 Leu/uL (Negative); Nitrite 2+ (Negative); Protein, Urine (Dipstick) Negative (Neg-Trace); RBC/HPF 0-3 HPF (0-3); Specific Gravity, Urine 1.008 (1.002-1.036); Squamous Epithelial 0-3 HPF (0-3); Urobilinogen Normal mg/dL (Less than 2)
[2022-11-04 19:25] LABS: Urine Culture Reflex No No
[2022-11-04] MEDS ORDERED: cefTRIAXone (ROCEPHIN) 1 GM VIAL ONE (21:10)
== END 2022-11-05 00:04 | disposition home or self-care (01) ==
LOC: ERS 14:49
DX: N39.0 Urinary tract infection, site not specified (principal); D64.9 Anemia, unspecified; R53.1 Weakness; R42 Dizziness and giddiness; I10 Essential (primary) hypertension; J44.9 Chronic obstructive pulmonary disease, unspecified; F17.210 Nicotine dependence, cigarettes, uncomplicated
CPT/HCPCS: 36415; 71045; 80307; 81001; 83690; 83880; 84484; 85025; 93005; J0696

== ENCOUNTER 2024-11-08 10:50 | Inpatient (IN) | payer MEDICARE ==
[2024-11-08 12:57] LABS: #Basophils 0.03 10x3/uL (0.0-0.2); #Eosinophils Less than 0.03 10x3/uL (0.0-0.7); #Monocytes 0.38 10x3/uL (0.11-0.59); #Neutrophils 3.12 10x3/uL (1.40-6.50); %Basophils 0.7 % (0.0-1.0); %Eosinophils 0.2 % (0.0-10.0); %Lymphocytes 21.5 % (21.0-51.0); %Monocytes 8.4 % (0.0-10.0); %Neutrophils 69.0 % (42.0-75.0); Hematocrit 27.4 % (36.0-47.0); Hemoglobin 9.7 g/dL (12.0-16.0); Mean Corpuscular Hemoglobin 32.0 pg (27.0-31.0); Mean Corpuscular Volume 90.4 fL (78.0-98.0); Platelet Count 193 10x3/uL (130-400); Red Blood Cell (RBC) Count 3.03 mill/uL (4.20-5.40); White Blood Cell (WBC) Count 4.52 10x3/uL (4.8-10.8)
[2024-11-08 13:02] LABS: Actual Bicarbonate (HCO3v) 24.3 mEq/L (22-28); Base Excess 0.1 mEq/L (-2.0 to +3.0); Calcium, Ionized (venous) 1.00 mmol/L (1.16-1.32); Chloride (VBG) 83 mmol/L (98-106); Hematocrit-VBG 33 % (36.0-47.0); Hemoglobin (Hb) 11.1 g/dL (11.7-16.0); Potassium (VBG) 3.86 mmol/L (3.70-5.30)
[2024-11-08 13:03] LABS: Sodium 117 mmol/L (133-146)
[2024-11-08 13:12] LABS: Bacteria/HPF None Seen HPF (None Seen); CAUTI Indications for Culture Pelvic or flank pain; Glucose, Urine (Dipstick) Normal (Negative); Leukocyte Negative Leu/uL (Negative); Protein, Urine (Dipstick) Negative (Neg-Trace); RBC/HPF 0-3 HPF (0-3); Specific Gravity, Urine 1.004 (1.002-1.036); WBC/HPF 0-3 HPF (0-3)
[2024-11-08 13:15] LABS: Urine Culture Reflex No No
[2024-11-08 13:22] LABS: Cocaine Metabolite Screen Negative (Negative); THC/Cannabinoid Screen Negative (Negative); Tricyclic Screen Negative (Negative)
[2024-11-08 13:24] LABS: Acetaminophen Less than 10 mcg/mL (Less than 10); Magnesium 1.7 mg/dL (1.6-2.6); Salicylate Less than 8.0 mg/dL (Less than 8.0)
[2024-11-08 13:44] LABS: ALT (SGPT) 11 U/L (Less than 34); AST (SGOT) 17 U/L (11-34); Albumin 3.6 g/dL (3.1-4.5); Alkaline Phosphatase 61 U/L (40-110); Anion Gap 16 mmol/L (10-20); BUN (Urea Nitrogen) 5 mg/dL (9.8-20.1); Bilirubin, Total 1.0 mg/dL (0.3-1.2); Calc. Creatinine Clearance 0 mL/min (70-130); Calcium 8.8 mg/dL (7.8-10.44); Carbon Dioxide 24 mmol/L (22-29); Chloride 80 mmol/L (98-107); Globulin 2.3 g/dL (2.4-3.5); Glucose 87 mg/dL (70-105); Potassium 3.7 mmol/L (3.5-5.1); Sodium 116 mmol/L (136-145)
[2024-11-08] MEDS ORDERED: Electrolyte Replacement Protocol 1 EACH FS PRN (15:45)
[2024-11-08] MEDS ORDERED: Albuterol 200 PUFF INH INH PRN (17:16)
[2024-11-08 18:24] LABS: Osmolality, Serum 242 mOsm/kg (275-295)
[2024-11-08] MEDS: Mometasone 200 MCG/Formoterol 5 MCG 120 PUFF INHALER INH SCH (18:28)
[2024-11-08] MEDS: Magnesium 2 GM/50 ML(in water) 2 GM in Premix 1 BAG IVPB SCH (20:33)
[2024-11-08] MEDS: Multivit, Therapeutic 1 TAB PO SCH (20:34)
[2024-11-08] MEDS: Folic Acid 1 MG TAB PO SCH (20:34)
[2024-11-08] MEDS: Pantoprazole 40 MG VIAL IVP SCH (20:34)
[2024-11-08] MEDS: Gabapentin 100 MG CAP PO SCH (20:34)
[2024-11-08 20:44] LABS: Sodium 121 mmol/L (136-145)
[2024-11-09 01:41] LABS: Sodium 122 mmol/L (136-145)
[2024-11-09 03:37] LABS: #Basophils 0.03 10x3/uL (0.0-0.2); #Eosinophils Less than 0.03 10x3/uL (0.0-0.7); #Monocytes 0.38 10x3/uL (0.11-0.59); #Neutrophils 2.72 10x3/uL (1.40-6.50); %Basophils 0.8 % (0.0-1.0); %Eosinophils 0.5 % (0.0-10.0); %Lymphocytes 20.6 % (21.0-51.0); %Monocytes 9.5 % (0.0-10.0); %Neutrophils 68.3 % (42.0-75.0); Hematocrit 26.3 % (36.0-47.0); Hemoglobin 9.2 g/dL (12.0-16.0); Mean Corpuscular Hemoglobin 32.1 pg (27.0-31.0); Mean Corpuscular Volume 91.6 fL (78.0-98.0); Platelet Count 183 10x3/uL (130-400); Red Blood Cell (RBC) Count 2.87 mill/uL (4.20-5.40); White Blood Cell (WBC) Count 3.98 10x3/uL (4.8-10.8)
[2024-11-09 04:07] LABS: Anion Gap 11 mmol/L (10-20); BUN (Urea Nitrogen) 4 mg/dL (9.8-20.1); Calc. Creatinine Clearance 0 mL/min (70-130); Calcium 9.1 mg/dL (7.8-10.44); Carbon Dioxide 28 mmol/L (22-29); Chloride 88 mmol/L (98-107); Glucose 77 mg/dL (70-105); Magnesium 2.6 mg/dL (1.6-2.6); Potassium 3.4 mmol/L (3.5-5.1); Sodium 124 mmol/L (136-145)
[2024-11-09] MEDS: Pantoprazole 40 MG VIAL IVP SCH (08:36)
[2024-11-09] MEDS: Folic Acid 1 MG TAB PO SCH (08:37)
[2024-11-09] MEDS: Multivit, Therapeutic 1 TAB PO SCH (08:38)
[2024-11-09] MEDS: Cyanocobalamin (Vitamin B-12) 1,000 MCG TAB PO SCH (09:02)
[2024-11-09 09:27] LABS: Anion Gap 17 mmol/L (10-20); BUN (Urea Nitrogen) 5 mg/dL (9.8-20.1); Calc. Creatinine Clearance 81 mL/min (70-130); Calcium 9.7 mg/dL (7.8-10.44); Carbon Dioxide 22 mmol/L (22-29); Chloride 91 mmol/L (98-107); Glucose 118 mg/dL (70-105); Potassium 3.9 mmol/L (3.5-5.1); Sodium 126 mmol/L (136-145)
[2024-11-09 13:54] LABS: Osmolality, Urine 212 mOsm/kg (50-1200)
[2024-11-09] MEDS: Acetaminophen 325 MG TAB PO PRN (14:12)
[2024-11-09] MEDS ORDERED: cloNIDine 0.1 MG TAB PO PRN (15:46)
[2024-11-09] MEDS: Cyclobenzaprine 10 MG TAB PO PRN (19:49)
[2024-11-09] MEDS: Cholecalciferol 1,000 UNITS (25 MCG) TAB PO SCH (19:50)
[2024-11-09] MEDS: Mupirocin 1 GM TUBE TP SCH (19:51)
[2024-11-09] MEDS: Heparin 5,000 UNITS/ML VIAL SC SCH (19:51)
[2024-11-10 05:57] LABS: #Basophils Less than 0.03 10x3/uL (0.0-0.2); #Eosinophils Less than 0.03 10x3/uL (0.0-0.7); #Monocytes 0.49 10x3/uL (0.11-0.59); #Neutrophils 6.73 10x3/uL (1.40-6.50); %Basophils 0.1 % (0.0-1.0); %Eosinophils 0.0 % (0.0-10.0); %Lymphocytes 3.3 % (21.0-51.0); %Monocytes 6.5 % (0.0-10.0); %Neutrophils 89.6 % (42.0-75.0); Hematocrit 26.1 % (36.0-47.0); Hemoglobin 9.0 g/dL (12.0-16.0); Mean Corpuscular Hemoglobin 32.3 pg (27.0-31.0); Mean Corpuscular Volume 93.5 fL (78.0-98.0); Platelet Count 164 10x3/uL (130-400); Red Blood Cell (RBC) Count 2.79 mill/uL (4.20-5.40); White Blood Cell (WBC) Count 7.52 10x3/uL (4.8-10.8)
[2024-11-10 06:09] LABS: Anion Gap 12 mmol/L (10-20); BUN (Urea Nitrogen) 9 mg/dL (9.8-20.1); Calc. Creatinine Clearance 76 mL/min (70-130); Calcium 8.8 mg/dL (7.8-10.44); Carbon Dioxide 28 mmol/L (22-29); Chloride 90 mmol/L (98-107); Glucose 99 mg/dL (70-105); Magnesium 1.8 mg/dL (1.6-2.6); Potassium 3.9 mmol/L (3.5-5.1); Sodium 126 mmol/L (136-145)
[2024-11-10] MEDS: Magnesium 2 GM/50 ML(in water) 2 GM in Premix 1 BAG IVPB SCH (09:09)
[2024-11-11 07:27] LABS: Anion Gap 10 mmol/L (10-20); BUN (Urea Nitrogen) 13 mg/dL (9.8-20.1); Calc. Creatinine Clearance 65 mL/min (70-130); Calcium 8.9 mg/dL (7.8-10.44); Carbon Dioxide 26 mmol/L (22-29); Chloride 94 mmol/L (98-107); Glucose 94 mg/dL (70-105); Potassium 4.2 mmol/L (3.5-5.1); Sodium 126 mmol/L (136-145)
[2024-11-12 06:04] LABS: Anion Gap 12 mmol/L (10-20); BUN (Urea Nitrogen) 7 mg/dL (9.8-20.1); Calc. Creatinine Clearance 85 mL/min (70-130); Calcium 9.1 mg/dL (7.8-10.44); Carbon Dioxide 25 mmol/L (22-29); Chloride 100 mmol/L (98-107); Glucose 84 mg/dL (70-105); Potassium 4.3 mmol/L (3.5-5.1); Sodium 133 mmol/L (136-145)
[2024-11-13 04:41] LABS: Anion Gap 15 mmol/L (10-20); BUN (Urea Nitrogen) 8 mg/dL (9.8-20.1); Calc. Creatinine Clearance 91 mL/min (70-130); Calcium 9.2 mg/dL (7.8-10.44); Carbon Dioxide 25 mmol/L (22-29); Chloride 102 mmol/L (98-107); Glucose 88 mg/dL (70-105); Potassium 3.9 mmol/L (3.5-5.1); Sodium 138 mmol/L (136-145)
[2024-11-14] MEDS: Losartan 25 MG TAB PO SCH (10:55)
[2024-11-15 15:02] VITALS: TEMP 97.4
[2024-11-15 15:58] VITALS: BP 113/77
== END 2024-11-15 22:15 | DRG 641 ==
LOC: ERS 10:50 → ERHOLD 15:21 → CCU 17:52 → T4-B 11-09 16:11
PROVIDERS: ADMIT Internal Medicine; ATTEND Student in an Organized Health Care Education/Training Program
DX: E87.1 Hypo-osmolality and hyponatremia (principal); E46 Unspecified protein-calorie malnutrition; I10 Essential (primary) hypertension; J44.9 Chronic obstructive pulmonary disease, unspecified; F10.10 Alcohol abuse, uncomplicated; F17.210 Nicotine dependence, cigarettes, uncomplicated; D64.9 Anemia, unspecified; E83.42 Hypomagnesemia; W19.XXXA Unspecified fall, initial encounter; R62.7 Adult failure to thrive; R29.6 Repeated falls; Z98.890 Other specified postprocedural states; Z90.2 Acquired absence of lung [part of]
CPT/HCPCS: 36415; 70450; 71045; 72125; 80048; 80053; 80306; 80307; 81001; 82805; 83605; 83735; 83930; 83935; 84100; 84300; 84484; 85025; 93005; 94664; 96374; J1644; J2470; J3411; J3475; J7131

== ENCOUNTER 2024-12-20 06:13 | Inpatient (IN) | payer MEDICARE ==
[2024-12-20 06:44] LABS: #Basophils Less than 0.03 10x3/uL (0.0-0.2); #Eosinophils 0.05 10x3/uL (0.0-0.7); #Monocytes 0.71 10x3/uL (0.11-0.59); #Neutrophils 4.65 10x3/uL (1.40-6.50); %Basophils 0.3 % (0.0-1.0); %Eosinophils 0.7 % (0.0-10.0); %Lymphocytes 25.0 % (21.0-51.0); %Monocytes 9.8 % (0.0-10.0); %Neutrophils 63.8 % (42.0-75.0); Hematocrit 36.6 % (36.0-47.0); Hemoglobin 13.2 g/dL (12.0-16.0); Mean Corpuscular Hemoglobin 30.8 pg (27.0-31.0); Mean Corpuscular Volume 85.5 fL (78.0-98.0); Platelet Count 316 10x3/uL (130-400); Red Blood Cell (RBC) Count 4.28 mill/uL (4.20-5.40); White Blood Cell (WBC) Count 7.28 10x3/uL (4.8-10.8)
[2024-12-20 06:57] LABS: ALT (SGPT) 13 U/L (Less than 34); AST (SGOT) 23 U/L (11-34); Albumin 3.9 g/dL (3.1-4.5); Alkaline Phosphatase 170 U/L (40-110); Anion Gap 15 mmol/L (10-20); BUN (Urea Nitrogen) 15 mg/dL (9.8-20.1); Bilirubin, Total 0.8 mg/dL (0.3-1.2); Calc. Creatinine Clearance 0 mL/min (70-130); Calcium 9.6 mg/dL (7.8-10.44); Carbon Dioxide 30 mmol/L (22-29); Chloride 78 mmol/L (98-107); Globulin 3.4 g/dL (2.4-3.5); Glucose 97 mg/dL (70-105); Lipase 51 U/L (8-78); Magnesium 1.6 mg/dL (1.6-2.6); Potassium 3.3 mmol/L (3.5-5.1); Sodium 120 mmol/L (136-145)
[2024-12-20] MEDS ORDERED: Potassium Bicarbonate/Cit Ac 20 MEQ TAB ONE (08:27)
[2024-12-20] MEDS ORDERED: Enoxaparin 60 MG (0.6 mL) SYRINGE ONE (08:27)
[2024-12-20] MEDS ORDERED: Metoprolol Tartrate 5 MG (5 mL) VIAL ONE (08:27)
[2024-12-20 09:22] LABS: Osmolality, Serum 249 mOsm/kg (275-295)
[2024-12-20 09:49] LABS: Sodium 122 mmol/L (136-145)
[2024-12-20 10:05] LABS: Osmolality, Urine 136 mOsm/kg (50-1200)
[2024-12-20] MEDS ORDERED: Senokot S 8.6-50 MG TAB PO PRN (10:22)
[2024-12-20] MEDS ORDERED: Electrolyte Replacement Protocol 1 EACH FS SCH (10:30)
[2024-12-20 11:04] LABS: Bacteria/HPF None Seen HPF (None Seen); CAUTI Indications for Culture Pelvic or flank pain; Glucose, Urine (Dipstick) Normal (Negative); Leukocyte Negative Leu/uL (Negative); Protein, Urine (Dipstick) Negative (Neg-Trace); RBC/HPF 0-3 HPF (0-3); Specific Gravity, Urine 1.004 (1.002-1.036); WBC/HPF 0-3 HPF (0-3)
[2024-12-20 11:07] LABS: Urine Culture Reflex No No
[2024-12-20 11:11] VITALS: BMI 19.3
[2024-12-20] MEDS ORDERED: Magnesium 2 GM/50 ML(in water) 2 GM in Premix 1 BAG IVPB PRN (12:15)
[2024-12-20] MEDS ORDERED: Potassium Chloride 20 MEQ in Premix 1 BAG IVPB PRN (12:15)
[2024-12-20] MEDS ORDERED: PHOS-NAK 1 PKT PACK PO PRN (12:15)
[2024-12-20 12:22] LABS: Magnesium 1.7 mg/dL (1.6-2.6); Sodium 121 mmol/L (136-145)
[2024-12-20] MEDS: Magnesium 2 GM/50 ML(in water) 2 GM in Premix 1 BAG IVPB SCH (13:06)
[2024-12-20] MEDS: Folic Acid 1 MG TAB PO SCH (13:07)
[2024-12-20] MEDS: Multivit, Therapeutic 1 TAB PO SCH (13:07)
[2024-12-20] MEDS: Communication Order-Pharmacy FS ONE (13:27)
[2024-12-20] MEDS: Ondansetron PF 4 MG/2 ML Vial IVP PRN (13:27)
[2024-12-20 16:57] LABS: Sodium 124 mmol/L (136-145)
[2024-12-20] MEDS: Enoxaparin 60 MG (0.6 mL) SYRINGE SC SCH (20:14)
[2024-12-20 22:36] LABS: Cocaine Metabolite Screen Negative (Negative); THC/Cannabinoid Screen Negative (Negative); Tricyclic Screen Negative (Negative)
[2024-12-20 22:38] LABS: Sodium 128 mmol/L (136-145)
[2024-12-21 04:27] LABS: #Basophils 0.05 10x3/uL (0.0-0.2); #Eosinophils 0.12 10x3/uL (0.0-0.7); #Monocytes 0.73 10x3/uL (0.11-0.59); #Neutrophils 2.97 10x3/uL (1.40-6.50); %Basophils 0.7 % (0.0-1.0); %Eosinophils 1.7 % (0.0-10.0); %Lymphocytes 43.6 % (21.0-51.0); %Monocytes 10.5 % (0.0-10.0); %Neutrophils 43.1 % (42.0-75.0); Hematocrit 33.9 % (36.0-47.0); Hemoglobin 11.6 g/dL (12.0-16.0); Mean Corpuscular Hemoglobin 30.8 pg (27.0-31.0); Mean Corpuscular Volume 89.9 fL (78.0-98.0); Platelet Count 308 10x3/uL (130-400); Red Blood Cell (RBC) Count 3.77 mill/uL (4.20-5.40); White Blood Cell (WBC) Count 6.92 10x3/uL (4.8-10.8)
[2024-12-21 04:44] LABS: Anion Gap 12 mmol/L (10-20); BUN (Urea Nitrogen) 11 mg/dL (9.8-20.1); Calc. Creatinine Clearance 62 mL/min (70-130); Calcium 8.9 mg/dL (7.8-10.44); Carbon Dioxide 27 mmol/L (22-29); Chloride 94 mmol/L (98-107); Glucose 92 mg/dL (70-105); Potassium 3.7 mmol/L (3.5-5.1); Sodium 129 mmol/L (136-145)
[2024-12-21] MEDS: Mometasone 200 MCG/Formoterol 5 MCG 120 PUFF INHALER INH SCH (07:26)
[2024-12-21] MEDS: Folic Acid 1 MG TAB PO SCH (10:34)
[2024-12-21] MEDS: Multivit, Therapeutic 1 TAB PO SCH (10:35)
[2024-12-21] MEDS: Ferrous Sulfate 325 MG TAB PO SCH (10:35)
[2024-12-21 11:17] LABS: Sodium 132 mmol/L (136-145)
[2024-12-21 17:25] VITALS: BMI 19.3
[2024-12-21 20:37] LABS: Sodium 131 mmol/L (136-145)
[2024-12-21] MEDS: Melatonin 3 MG TAB PO PRN (20:42)
[2024-12-22 04:14] LABS: #Basophils 0.04 10x3/uL (0.0-0.2); #Eosinophils 0.12 10x3/uL (0.0-0.7); #Monocytes 0.45 10x3/uL (0.11-0.59); #Neutrophils 2.25 10x3/uL (1.40-6.50); %Basophils 0.8 % (0.0-1.0); %Eosinophils 2.3 % (0.0-10.0); %Lymphocytes 45.0 % (21.0-51.0); %Monocytes 8.6 % (0.0-10.0); %Neutrophils 42.9 % (42.0-75.0); Hematocrit 31.4 % (36.0-47.0); Hemoglobin 10.4 g/dL (12.0-16.0); Mean Corpuscular Hemoglobin 30.5 pg (27.0-31.0); Mean Corpuscular Volume 92.1 fL (78.0-98.0); Platelet Count 284 10x3/uL (130-400); Red Blood Cell (RBC) Count 3.41 mill/uL (4.20-5.40); White Blood Cell (WBC) Count 5.24 10x3/uL (4.8-10.8)
[2024-12-22 04:31] LABS: Anion Gap 15 mmol/L (10-20); BUN (Urea Nitrogen) 12 mg/dL (9.8-20.1); Calc. Creatinine Clearance 77 mL/min (70-130); Calcium 9.0 mg/dL (7.8-10.44); Carbon Dioxide 24 mmol/L (22-29); Chloride 99 mmol/L (98-107); Glucose 92 mg/dL (70-105); Potassium 3.6 mmol/L (3.5-5.1); Sodium 134 mmol/L (136-145)
[2024-12-23] MEDS: Cyclobenzaprine 10 MG TAB PO PRN (02:58)
[2024-12-23 04:32] LABS: #Basophils 0.03 10x3/uL (0.0-0.2); #Eosinophils 0.16 10x3/uL (0.0-0.7); #Monocytes 0.51 10x3/uL (0.11-0.59); #Neutrophils 2.65 10x3/uL (1.40-6.50); %Basophils 0.5 % (0.0-1.0); %Eosinophils 2.7 % (0.0-10.0); %Lymphocytes 42.5 % (21.0-51.0); %Monocytes 8.7 % (0.0-10.0); %Neutrophils 45.4 % (42.0-75.0); Hematocrit 34.4 % (36.0-47.0); Hemoglobin 11.9 g/dL (12.0-16.0); Mean Corpuscular Hemoglobin 31.5 pg (27.0-31.0); Mean Corpuscular Volume 91.0 fL (78.0-98.0); Platelet Count 290 10x3/uL (130-400); Red Blood Cell (RBC) Count 3.78 mill/uL (4.20-5.40); White Blood Cell (WBC) Count 5.84 10x3/uL (4.8-10.8)
[2024-12-23 04:57] LABS: Anion Gap 15 mmol/L (10-20); BUN (Urea Nitrogen) 18 mg/dL (9.8-20.1); Calc. Creatinine Clearance 76 mL/min (70-130); Calcium 9.3 mg/dL (7.8-10.44); Carbon Dioxide 24 mmol/L (22-29); Chloride 100 mmol/L (98-107); Glucose 78 mg/dL (70-105); Potassium 4.0 mmol/L (3.5-5.1); Sodium 135 mmol/L (136-145)
[2024-12-23] MEDS: Acetaminophen 325 MG TAB PO PRN (06:34)
[2024-12-23] MEDS: Thiamine 100 MG TAB PO SCH (09:15)
[2024-12-23] MEDS: Ibuprofen 600 MG TAB PO PRN (17:48)
[2024-12-23] MEDS: Apixaban 5 MG TAB PO SCH (20:15)
[2024-12-24 05:28] LABS: #Basophils 0.03 10x3/uL (0.0-0.2); #Eosinophils 0.20 10x3/uL (0.0-0.7); #Monocytes 0.50 10x3/uL (0.11-0.59); #Neutrophils 3.19 10x3/uL (1.40-6.50); %Basophils 0.5 % (0.0-1.0); %Eosinophils 3.1 % (0.0-10.0); %Lymphocytes 39.3 % (21.0-51.0); %Monocytes 7.7 % (0.0-10.0); %Neutrophils 49.2 % (42.0-75.0); Hematocrit 30.6 % (36.0-47.0); Hemoglobin 10.2 g/dL (12.0-16.0); Mean Corpuscular Hemoglobin 30.9 pg (27.0-31.0); Mean Corpuscular Volume 92.7 fL (78.0-98.0); Platelet Count 316 10x3/uL (130-400); Red Blood Cell (RBC) Count 3.30 mill/uL (4.20-5.40); White Blood Cell (WBC) Count 6.47 10x3/uL (4.8-10.8)
[2024-12-24 05:48] LABS: Anion Gap 14 mmol/L (10-20); BUN (Urea Nitrogen) 31 mg/dL (9.8-20.1); Calc. Creatinine Clearance 76 mL/min (70-130); Calcium 9.3 mg/dL (7.8-10.44); Carbon Dioxide 25 mmol/L (22-29); Chloride 100 mmol/L (98-107); Glucose 85 mg/dL (70-105); Potassium 4.7 mmol/L (3.5-5.1); Sodium 134 mmol/L (136-145)
[2024-12-24 12:43] VITALS: BP 119/74; TEMP 97.8
== END 2024-12-24 17:53 | disposition home health service (06) | DRG 640 ==
LOC: ERS 06:13 → 2NO 08:52
PROVIDERS: ADMIT Family Medicine; ATTEND Student in an Organized Health Care Education/Training Program
PROC: HZ2ZZZZ Detoxification Services for Substance Abuse Treatment (ICD-10-PCS; principal; 2024-12-20)
DX: E87.1 Hypo-osmolality and hyponatremia (principal); E43 Unspecified severe protein-calorie malnutrition; I48.92 Unspecified atrial flutter; F10.239 Alcohol dependence with withdrawal, unspecified; Z68.1 Body mass index [BMI] 19.9 or less, adult; I10 Essential (primary) hypertension; J44.9 Chronic obstructive pulmonary disease, unspecified; D64.9 Anemia, unspecified; F17.210 Nicotine dependence, cigarettes, uncomplicated; M25.511 Pain in right shoulder; Z98.890 Other specified postprocedural states; Z90.2 Acquired absence of lung [part of]; Z91.148 Patient's other noncompliance with medication regimen for other reason; Z71.41 Alcohol abuse counseling and surveillance of alcoholic; I48.91 Unspecified atrial fibrillation
CPT/HCPCS: 36415; 70450; 80048; 80053; 80306; 81001; 83605; 83690; 83735; 83880; 83930; 83935; 84295; 84300; 84484; 85025; 87428; 93005; 93306; 94664; 94760; 96365; 96372; 96375; J1650; J2405; J3411; J3475; J7030